=== PATIENT | male | born 1960 | race Caucasian/White ===

== ENCOUNTER 2021-03-17 11:03 | Inpatient (IN) | payer MEDICAID ==
[~2021-03-17] VITALS: Ht 172.7 cm; Wt 54.0 kg
--- NOTE | 2021-03-17 11:30 | NUR ---
2 bear hugger placed on patient with 2 fluid warmer, multiple warm blankets on top of patient as well as warm blanket covering the head. We will monitor closely.
--- NOTE | 2021-03-17 11:35 | NUR ---
friend Sergio Rodrigezil [phone]
[2021-03-17] MEDS ORDERED: insulin regular, human 10 units/0.1 ml syringe IV ONE (11:40)
[2021-03-17] MEDS ORDERED: Insulin Reg/NS 100units/100mL 100 ML IV PRN ×2 (11:40→14:21)
[2021-03-17] MEDS ORDERED: CefTRIAXone 2gm/D5W 50ml BAG 50 ML IV ONE ×2 (11:40→14:30)
[2021-03-17] MEDS ORDERED: normal saline 1000ML IV soln IV ONE (11:40)
[2021-03-17] MEDS ORDERED: insulin regular, human U-100 3ml vial - multi-dose IV ONE (11:40)
[2021-03-17 11:52] LABS: CLARITY,URINE CLEAR (Clear); COLOR,URINE YELLOW (Yellow); GLUCOSE, URINE >=1000 mg/dl (Neg); KETONES,URINE >=80 mg/dl (Neg); LEUKOCYTE ESTERASE ,URINE NEGATIVE (Neg); NITRITES, URINE NEGATIVE (Neg); OCCULT BLOOD,URINE MODERATE (Neg); PROTEIN,URINE TRACE mg/dl (Neg); UROBILINOGEN,URINE 0.2 E.U/dL (0.2-1.0)
[2021-03-17 11:53] LABS: BASOPHILS # (AUTO) 0.1 X10'3 (0-0.2); BASOPHILS % (AUTO) 0.3 % (0-1); EOSINOPHILS % (AUTO) 0 % (0-6); HEMATOCRIT 46.9 % (42.0-52.0); HEMOGLOBIN 14.9 g/dl (14.0-17.9); LYMPHOCYTES # (AUTO) 1.4 X10'3 (1.1-4.8); LYMPHOCYTES % (AUTO) 5.6 % (21-51); MEAN CORPUSCULAR HEMOGLOBIN 29.2 PG (27.0-31.0); MEAN CORPUSCULAR HGB CONC 31.8 g/dL (33.0-36.5); MEAN CORPUSCULAR VOLUME 91.9 FL (78-98); MEAN PLATELET VOLUME 9.8 FL (7.4-10.4); NEUTROPHILS % (AUTO) 90.1 % (42-75); PLATELET COUNT 473 X10'3 (140-440); RED BLOOD COUNT 5.11 X10'6 (4.70-6.10); RED CELL DISTRIBUTION WIDTH 15.8 % (11.5-14.5); WHITE BLOOD COUNT 24.4 X10'3 (4.5-11.0)
[2021-03-17 11:58] LABS: ALANINE AMINOTRANSFERASE 21 U/L (12-78); ALBUMIN 3.6 G/DL (3.4-5.0); ALKALINE PHOSPHATASE 136 IU/L (46-116); ANION GAP 33 (8-16); ASPARTATE AMINO TRANSFERASE 6 U/L (10-37); BILIRUBIN,TOTAL 0.4 MG/DL (0.1-1.0); BLOOD UREA NITROGEN 33 MG/DL (7-18); BUN/CREATININE RATIO 13.6 (5.4-32.0); CALCIUM 10.2 MG/DL (8.5-10.1); CHLORIDE 89 MMOL/L (99-107); CREATININE 2.42 MG/DL (0.60-1.10); MAGNESIUM 2.4 MG/DL (1.5-2.4); POTASSIUM 4.1 MMOL/L (3.5-5.1); SODIUM 129 MMOL/L (135-145); TOTAL PROTEIN 7.3 G/DL (6.4-8.2); eGFR 28 ML/MIN
[2021-03-17 11:59] LABS: UA COLLECTION TYPE STRAIGHT CATH
[2021-03-17 12:00] LABS: BACTERIA,URINE FEW /HPF (Neg); RBC,URINE 0-2 /HPF (0-2); SQUAMOUS EPITHELIAL CELL,UR FEW /LPF (FEW); WBC,URINE 0-4 /HPF (0-4)
[2021-03-17 12:01] LABS: FINE GRANULAR CAST 0-3 /LPF (NEGATIVE)
[2021-03-17 12:11] LABS: GLUCOSE 709 MG/DL (70-104); TOTAL CARBON DIOXIDE 7.1 MMOL/L (24-32)
--- NOTE | 2021-03-17 13:17 | NUR ---
TEMP BOLTON PLACED PER DR DE LA ROSA.
[2021-03-17 13:40] LABS: PLATELET ESTIMATE INCREASED; TOTAL CELLS COUNTED 100
--- NOTE | 2021-03-17 13:51 | NUR ---
[place] NUMBER FOR KIMBERLY [phone]
[2021-03-17] MEDS ORDERED: INSU100I8 SQ (14:07)
[2021-03-17] MEDS ORDERED: INSU100V9 SQ (14:07)
[2021-03-17] MEDS ORDERED: ondansetron/PF 4mg/2ml inj IV STA (14:20)
[2021-03-17] MEDS ORDERED: potassium CL 10mEq/100ml bag 100 ML IV PRN (14:50)
[2021-03-17] MEDS ORDERED: HYDROcodone/acetaminophen 5mg/325mg tablet PO PRN (14:50)
[2021-03-17] MEDS ORDERED: magnesium Cl slow-release 64mg tablet PO PRN (14:50)
[2021-03-17] MEDS ORDERED: HYDROcodone/acetaminophen 10/325mg tab PO PRN (14:50)
[2021-03-17] MEDS ORDERED: sodium phosphate inj. 30 MMOL in dextrose 5%-water 250 ML IV PRN (14:50)
[2021-03-17] MEDS ORDERED: insulin regular, human U-100 3ml vial - multi-dose IV PRN (14:50)
[2021-03-17] MEDS ORDERED: magnesium 4gm in 100ml NS 100 ML IV PRN (14:50)
[2021-03-17] MEDS ORDERED: magnesium 2GM in 50ml NS 50 ML IV PRN (14:50)
[2021-03-17] MEDS ORDERED: mag hydrox/Alum hydrox/simeth 30ml oral suspension PO PRN (14:50)
[2021-03-17] MEDS ORDERED: sodium phosphate inj. 15 MMOL in dextrose 5%-water 250 ML IV PRN (14:50)
[2021-03-17] MEDS ORDERED: sodium bicarbonate (8.4%) inj. 100 MEQ in dextrose 5% water 500ml 500 ML IV PRN (14:50)
[2021-03-17] MEDS ORDERED: Neutra Phos packet PO PRN (14:50)
[2021-03-17] MEDS ORDERED: sodium bicarbonate (8.4%) inj. 50 MEQ in dextrose 5% water 500ml 250 ML IV PRN (14:50)
[2021-03-17] MEDS ORDERED: acetaminophen 325mg tablet PO PRN ×2 (14:50)
[2021-03-17] MEDS ORDERED: potassium Cl 20 mEq SR tablet PO PRN ×3 (14:50)
[2021-03-17] MEDS ORDERED: potassium Cl 40MEQ/1/2NS 520ml 520 ML IV PRN ×2 (14:50)
[2021-03-17] MEDS ORDERED: morphine 2 MG/ML inj. syringe IV PRN ×2 (14:50)
[2021-03-17] MEDS ORDERED: ondansetron/PF 4mg/2ml inj IV PRN (14:50)
[2021-03-17] MEDS: normal saline 1000ml 1,000 ML IV SCH ×5 (15:20→22:50)
[2021-03-17] MEDS: Insulin Reg/NS 100units/100mL 100 ML IV SCH (15:33)
--- NOTE | 2021-03-17 15:52 | NUR ---
patient reports " feellign better", RR 18.
--- NOTE | 2021-03-17 15:55 | NUR ---
emptied 30ml of urine from the abad cath.
[2021-03-17 16:20] LABS: CLARITY,URINE CLEAR (Clear); COLOR,URINE YELLOW (Yellow); GLUCOSE, URINE >=1000 mg/dl (Neg); KETONES,URINE >=80 mg/dl (Neg); LEUKOCYTE ESTERASE ,URINE NEGATIVE (Neg); NITRITES, URINE NEGATIVE (Neg); OCCULT BLOOD,URINE MODERATE (Neg); PROTEIN,URINE 30 mg/dl (Neg); UROBILINOGEN,URINE 0.2 E.U/dL (0.2-1.0)
[2021-03-17 16:31] LABS: UA COLLECTION TYPE FOLEY CATH
[2021-03-17 16:32] LABS: FINE GRANULAR CAST 0-3 /LPF (NEGATIVE)
[2021-03-17 16:33] LABS: BACTERIA,URINE FEW /HPF (Neg); RBC,URINE 0-2 /HPF (0-2); SQUAMOUS EPITHELIAL CELL,UR NONE SEEN /LPF (FEW); WBC,URINE 0-4 /HPF (0-4)
--- NOTE | 2021-03-17 17:18 | NUR ---
(VALERIANO/PARTNER)- ok to give information per patient.
--- NOTE | 2021-03-17 17:29 | NUR ---
JOCELYN ([facility]) [phone]
[2021-03-17] MEDS: cefepime 1GM/NS ADD-VANTAGE 100 ML IV SCH (18:04)
[2021-03-17] MEDS: heparin, porcine 5000 units/ml vial SQ SCH (18:05)
--- NOTE | 2021-03-17 18:11 | NUR ---
repositioned pt to side,skin intact to coccyx area but reddened, barrier cream applied and optifoam,call light within reach.
--- NOTE | 2021-03-17 18:24 | NUR ---
assumed care of pt - cbg 248. will change fluids per protocol
--- NOTE | 2021-03-17 18:58 | NUR ---
removing bear hugger. core temp within normal limits
[2021-03-17] MEDS: K and/or MAG REPLACEMENT MC SCH (19:20)
--- NOTE | 2021-03-17 19:21 | NUR ---
CBG 235
[2021-03-17 19:22] LABS: ALBUMIN 2.5 G/DL (3.4-5.0); ANION GAP 21 (8-16); BLOOD UREA NITROGEN 34 MG/DL (7-18); BUN/CREATININE RATIO 23.9 (5.4-32.0); CALCIUM 8.2 MG/DL (8.5-10.1); CHLORIDE 104 MMOL/L (99-107); CREATININE 1.42 MG/DL (0.60-1.10); GLUCOSE 242 MG/DL (70-104); POTASSIUM 3.2 MMOL/L (3.5-5.1); SODIUM 136 MMOL/L (135-145); eGFR 51 ML/MIN
[2021-03-17 19:32] LABS: TOTAL CARBON DIOXIDE 11.2 MMOL/L (24-32)
[2021-03-17] MEDS ORDERED: K and/or MAG REPLACEMENT MC SCH (20:00)
--- NOTE | 2021-03-17 20:08 | NUR ---
per protocol and recent potassium of 3.2 new fluids are d5 1/2 +20K @ 150 hour
[2021-03-17] MEDS: potassium CL 20mEq in D5-1/2NS 1,000 ML IV PRN (20:18)
--- NOTE | 2021-03-17 20:22 | NUR ---
cbg 204
[2021-03-17] MEDS ORDERED: temazepam 15mg capsule PO PRN (21:00)
--- NOTE | 2021-03-17 21:17 | NUR ---
CBG 174
--- NOTE | 2021-03-17 22:16 | NUR ---
cbg 160 continue insulin gtt per protocol
--- NOTE | 2021-03-17 23:09 | NUR ---
report to polo RDZ on PCU. bright transported on monitor to floor with this RN
[2021-03-17 23:30] VITALS: BP 122/73
--- NOTE | 2021-03-17 23:30 | NUR ---
Patient in room PCU 3024. I have received report from Gómez RDZ and had the opportunity to ask questions and assume patient care.
[2021-03-18] MEDS: cefepime 1GM/NS ADD-VANTAGE 100 ML IV SCH (01:02)
[2021-03-18] MEDS: heparin, porcine 5000 units/ml vial SQ SCH ×3 (01:09→16:19)
[2021-03-18 02:00] VITALS: BP 123/72
[2021-03-18] MEDS: normal saline 1000ml 1,000 ML IV SCH ×6 (02:50→22:50)
[2021-03-18] MEDS ORDERED: VANCOMYCIN LEVEL IV SCH (03:00)
[2021-03-18 03:41] LABS: ALANINE AMINOTRANSFERASE 15 U/L (12-78); ALBUMIN 2.6 G/DL (3.4-5.0); ALBUMIN/GLOBULIN RATIO 0.9 (1.1-1.5); ALKALINE PHOSPHATASE 94 IU/L (46-116); ANION GAP 14 (8-16); ASPARTATE AMINO TRANSFERASE 13 U/L (10-37); BILIRUBIN,TOTAL 0.1 MG/DL (0.1-1.0); BLOOD UREA NITROGEN 26 MG/DL (7-18); BUN/CREATININE RATIO 22.8 (5.4-32.0); CALCIUM 8.6 MG/DL (8.5-10.1); CHLORIDE 108 MMOL/L (99-107); CREATININE 1.14 MG/DL (0.60-1.10); GLUCOSE 72 MG/DL (70-104); PHOSPHORUS 2.3 MG/DL (2.3-4.5); POTASSIUM 3.2 MMOL/L (3.5-5.1); SODIUM 139 MMOL/L (135-145); TOTAL CARBON DIOXIDE 17.3 MMOL/L (24-32); TOTAL PROTEIN 5.6 G/DL (6.4-8.2); VANCOMYCIN,RANDOM 11.1 UG/ML; eGFR 66 ML/MIN
[2021-03-18 06:06] VITALS: BP 116/62
--- NOTE | 2021-03-18 06:36 | NUR ---
Problems reprioritized. Patient report given, questions answered & plan of care reviewed with Elbert RDZ.
[2021-03-18 06:37] LABS: BASOPHILS % (AUTO) 0.1 % (0-1); EOSINOPHILS % (AUTO) 0.1 % (0-6); HEMOGLOBIN 11.8 g/dl (14.0-17.9); LYMPHOCYTES # (AUTO) 1.5 X10'3 (1.1-4.8); LYMPHOCYTES % (AUTO) 7.9 % (21-51); MEAN CORPUSCULAR HEMOGLOBIN 29.7 PG (27.0-31.0); MEAN CORPUSCULAR HGB CONC 34.6 g/dL (33.0-36.5); MEAN CORPUSCULAR VOLUME 85.6 FL (78-98); MEAN PLATELET VOLUME 8.8 FL (7.4-10.4); MONOCYTES # (AUTO) 0.9 X10'3 (0-0.9); MONOCYTES % (AUTO) 4.9 % (2-12); NEUTROPHILS # (AUTO) 16.1 X10'3 (1.8-7.7); PLATELET COUNT 234 X10'3 (140-440); RED BLOOD COUNT 3.97 X10'6 (4.70-6.10); RED CELL DISTRIBUTION WIDTH 14.4 % (11.5-14.5); WHITE BLOOD COUNT 18.5 X10'3 (4.5-11.0)
[2021-03-18] MEDS ORDERED: vancomycin/NS 1 GM ADD-VANTAGE 250 ML IV PRN (08:00)
[2021-03-18] MEDS: cefepime 1GM in D5W 50mL 50 ML IV SCH ×2 (09:23→16:19)
[2021-03-18] MEDS: vancomycin/NS 1 GM ADD-VANTAGE 250 ML IV SCH ×2 (09:23→20:39)
[2021-03-18] MEDS: K and/or MAG REPLACEMENT MC SCH ×2 (09:24→20:00)
[2021-03-18] MEDS: Insulin Reg/NS 100units/100mL 100 ML IV SCH ×2 (10:06→16:36)
[2021-03-18] MEDS: potassium Cl 20 mEq SR tablet PO PRN ×3 (10:06→17:55)
[2021-03-18] MEDS: potassium CL 20mEq in D5-1/2NS 1,000 ML IV PRN ×3 (10:17→20:32)
--- NOTE | 2021-03-18 14:48 | NUR ---
Initial: Pt admit DX sepsis, DKA, and possible pancreatic CA per EMR. Pt reports doesn't know which type of DM he has but takes Lantus and humalog at home per EMR. Glu 709mg/dl on admit down to 190mg/dl this AM on insulin drip. GEORGE d/w RN who reports pending outpatient MRI results for official pancreatic CA DX. GEORGE salamanca MD regarding A1C this admit given DX. Pt remains NPO at this time w/ initial nausea now no GI symptoms per EMR. Noted BMI 18.1 however pending scaled wt this admit and pt reports no wt loss hx per EMR. LBM 03/16. Will monitor for A1C results and pt education needs as medically indicated. Rec: 1. advance diet as medically indicated to carb controlled 2. monitor for ONS needs pending PO trends once diet advances 3. routine bowel care 4. scaled wt this admit; subsequent weekly wts 5. monitor for A1C results and education needs this admit Addendum: 03/18/21 at [address] Amended: Links added.
[2021-03-18 14:58] LABS: ABG BASE EXCESS -7.9 mmol/L (-2.0-2.0); ABG HCO3 15.2 mmol/L (22.0-26.0); ABG PCO2 (T) 24.3 mmHg (35.0-48.0); ALLEN'S TEST POSITIVE; FCOHb 0.3 % (0.0-3.9); FMetHb 0.3 % (0.0-1.5); FO2Hb 97.4 % (94-97); PATIENT TEMPERATURE 36.5; TOTAL HEMOGLOBIN 12.3 G/dl (14.0-18.0)
[2021-03-18 14:59] LABS: ALBUMIN 2.4 G/DL (3.4-5.0); ANION GAP 9 (8-16); BLOOD UREA NITROGEN 14 MG/DL (7-18); BUN/CREATININE RATIO 17.3 (5.4-32.0); CALCIUM 8.6 MG/DL (8.5-10.1); CHLORIDE 110 MMOL/L (99-107); CREATININE 0.81 MG/DL (0.60-1.10); GLUCOSE 125 MG/DL (70-104); POTASSIUM 3.1 MMOL/L (3.5-5.1); SODIUM 137 MMOL/L (135-145); TOTAL CARBON DIOXIDE 17.7 MMOL/L (24-32); eGFR > 90 ML/MIN
[2021-03-18 15:24] LABS: MAGNESIUM 1.5 MG/DL (1.5-2.4)
--- NOTE | 2021-03-18 15:30 | NUR ---
RE: Amol Persaud room 3024B BS 115, Co2 17.7, K 3.1 Can I start D10 .45 NS? Insulin gtt at 5 unit/h ABG done and resulted Elbert RDZ [id number] please advise
[2021-03-18 15:38] VITALS: BP 105/62
[2021-03-18 17:49] LABS: ALANINE AMINOTRANSFERASE 15 U/L (12-78); ALBUMIN 2.4 G/DL (3.4-5.0); ALBUMIN/GLOBULIN RATIO 0.8 (1.1-1.5); ALKALINE PHOSPHATASE 84 IU/L (46-116); ANION GAP 9 (8-16); ASPARTATE AMINO TRANSFERASE 13 U/L (10-37); BILIRUBIN,TOTAL 0.2 MG/DL (0.1-1.0); BLOOD UREA NITROGEN 13 MG/DL (7-18); BUN/CREATININE RATIO 17.3 (5.4-32.0); CALCIUM 8.5 MG/DL (8.5-10.1); CHLORIDE 109 MMOL/L (99-107); CREATININE 0.75 MG/DL (0.60-1.10); GLUCOSE 92 MG/DL (70-104); MAGNESIUM 1.5 MG/DL (1.5-2.4); POTASSIUM 3.7 MMOL/L (3.5-5.1); SODIUM 137 MMOL/L (135-145); TOTAL CARBON DIOXIDE 19.5 MMOL/L (24-32); TOTAL PROTEIN 5.3 G/DL (6.4-8.2); eGFR > 90 ML/MIN
[2021-03-18 18:00] VITALS: BP 111/63
[2021-03-18 18:00] LABS: PHOSPHORUS 1.3 MG/DL (2.3-4.5)
[2021-03-18 22:00] VITALS: BP 111/62
[2021-03-18 22:35] LABS: ALBUMIN 2.2 G/DL (3.4-5.0); ANION GAP 9 (8-16); BLOOD UREA NITROGEN 9 MG/DL (7-18); BUN/CREATININE RATIO 12.7 (5.4-32.0); CALCIUM 8.1 MG/DL (8.5-10.1); CHLORIDE 109 MMOL/L (99-107); CREATININE 0.71 MG/DL (0.60-1.10); GLUCOSE 82 MG/DL (70-104); MAGNESIUM 1.4 MG/DL (1.5-2.4); POTASSIUM 3.2 MMOL/L (3.5-5.1); SODIUM 137 MMOL/L (135-145); TOTAL CARBON DIOXIDE 18.8 MMOL/L (24-32); eGFR > 90 ML/MIN
[2021-03-18] MEDS ORDERED: insulin Lispro (HumaLOG) vial - multi-dose SQ SCH (22:35)
[2021-03-18] MEDS ORDERED: dextrose ORAL solution 15 GM/59 ML bottle PO PRN ×2 (22:35)
[2021-03-18] MEDS ORDERED: dextrose 50%-water 50ml dispensing syringe IV PRN ×2 (22:35)
[2021-03-18] MEDS ORDERED: glucagon, human recombinant 1mg kit SUBCUT PRN (22:35)
[2021-03-18] MEDS ORDERED: MESSAGE TO PHARMACY PO ONE (22:35)
[2021-03-18 22:37] LABS: PHOSPHORUS 1.2 MG/DL (2.3-4.5)
[2021-03-18] MEDS ORDERED: Neutra Phos packet PO ONE (23:20)
--- NOTE | 2021-03-19 | NUR ---
Patient bllod Addendum: 03/19/21 at 0449 by Caroline Martínez RN Patient blood sugar at 92 insulin gtt discontinue
[2021-03-19] MEDS: cefepime 1GM in D5W 50mL 50 ML IV SCH ×2 (00:15→08:35)
--- NOTE | 2021-03-19 01:00 | NUR ---
Patient phosphorus level at 1.2 new order for replacement
[2021-03-19 02:00] VITALS: BP 107/65
[2021-03-19] MEDS: normal saline 1000ml 1,000 ML IV SCH ×2 (02:50→06:50)
[2021-03-19] MEDS: heparin, porcine 5000 units/ml vial SQ SCH ×2 (04:35→08:36)
[2021-03-19 06:55] LABS: BASOPHILS % (AUTO) 0.5 % (0-1); EOSINOPHILS % (AUTO) 0.3 % (0-6); HEMATOCRIT 33.9 % (42.0-52.0); HEMOGLOBIN 11.8 g/dl (14.0-17.9); LYMPHOCYTES # (AUTO) 1.6 X10'3 (1.1-4.8); LYMPHOCYTES % (AUTO) 18.3 % (21-51); MEAN CORPUSCULAR HEMOGLOBIN 30.1 PG (27.0-31.0); MEAN CORPUSCULAR HGB CONC 34.9 g/dL (33.0-36.5); MEAN CORPUSCULAR VOLUME 86.1 FL (78-98); MEAN PLATELET VOLUME 9.1 FL (7.4-10.4); MONOCYTES # (AUTO) 0.5 X10'3 (0-0.9); MONOCYTES % (AUTO) 6.4 % (2-12); NEUTROPHILS # (AUTO) 6.3 X10'3 (1.8-7.7); NEUTROPHILS % (AUTO) 74.5 % (42-75); PLATELET COUNT 184 X10'3 (140-440); RED BLOOD COUNT 3.93 X10'6 (4.70-6.10); RED CELL DISTRIBUTION WIDTH 15.4 % (11.5-14.5); WHITE BLOOD COUNT 8.5 X10'3 (4.5-11.0)
--- NOTE | 2021-03-19 07:02 | NUR ---
Problems reprioritized. Patient report given, questions answered & plan of care reviewed with Tito RDZ .
[2021-03-19 07:18] LABS: HEMOGLOBIN A1C 13.8 % (4.5-6.2)
[2021-03-19 07:35] LABS: ALANINE AMINOTRANSFERASE 13 U/L (12-78); ALBUMIN 2.3 G/DL (3.4-5.0); ALBUMIN/GLOBULIN RATIO 0.9 (1.1-1.5); ALKALINE PHOSPHATASE 82 IU/L (46-116); ANION GAP 11 (8-16); ASPARTATE AMINO TRANSFERASE 16 U/L (10-37); BILIRUBIN,TOTAL 0.3 MG/DL (0.1-1.0); BLOOD UREA NITROGEN 6 MG/DL (7-18); BUN/CREATININE RATIO 7.1 (5.4-32.0); CHLORIDE 109 MMOL/L (99-107); CREATININE 0.85 MG/DL (0.60-1.10); GLUCOSE 212 MG/DL (70-104); PHOSPHORUS 1.9 MG/DL (2.3-4.5); POTASSIUM 4.1 MMOL/L (3.5-5.1); SODIUM 139 MMOL/L (135-145); TOTAL CARBON DIOXIDE 18.9 MMOL/L (24-32); eGFR > 90 ML/MIN
[2021-03-19] MEDS: K and/or MAG REPLACEMENT MC SCH (08:00)
[2021-03-19] MEDS: vancomycin/NS 1 GM ADD-VANTAGE 250 ML IV SCH (08:35)
[2021-03-19] MEDS ORDERED: potassium cl 20mEq in 1/2 NS 1,000 ML IV SCH (11:20)
[2021-03-19] MEDS ORDERED: METR-159 PO (16:29)
[2021-03-19] MEDS ORDERED: CIPR-259 PO (16:29)
[2021-03-19] MEDS ORDERED: VANCOMYCIN LEVEL IV ONE (19:30)
[2021-03-19] MEDS ORDERED: lactobacillus rhamnosus 10,000 MMU CELLS/CAPSULE PO SCH (20:00)
== END 2021-03-19 19:10 | disposition home or self-care (01) | DRG 720 ==
LOC: ER 11:04 → ED HOLD 14:53 → PCU 3S 23:40
PROVIDERS: ADMIT Internal Medicine; ATTEND Internal Medicine
DX: A41.9 Sepsis, unspecified organism (principal); N17.9 Acute kidney failure, unspecified; E11.10 Type 2 diabetes mellitus with ketoacidosis without coma; R64 Cachexia; E87.1 Hypo-osmolality and hyponatremia; E11.22 Type 2 diabetes mellitus with diabetic chronic kidney disease; N18.9 Chronic kidney disease, unspecified; R68.0 Hypothermia, not associated with low environmental temperature; Z68.1 Body mass index [BMI] 19.9 or less, adult; E87.6 Hypokalemia
CPT/HCPCS: 36415; 36600; 71045; 74181; 80048; 80053; 80202; 81001; 82803; 82948; 83036; 83605; 83735; 83930; 84100; 84145; 85007; 85018; 85025; 87040; 87081; 96365; 96368; 96375; 97110; 97161; 97530; 99285; G0378; J0692; J0696; J1644; J1815; J2405; J3370; J3480; J7030